=== PATIENT | female | born 1960 | race Caucasian/White ===

== ENCOUNTER → 2020-10-05 08:27 | Outpatient (BNVA) | payer BC, SELFPAY | PROVIDERS: Family Provider Nurse Practitioner Family; PCP Family Medicine; Visit Provider Podiatrist Foot & Ankle Surgery | DX: M79.672 Pain in left foot (principal); M21.6X2 Other acquired deformities of left foot; M25.872 Other specified joint disorders, left ankle and foot; D36.10 Benign neoplasm of peripheral nerves and autonomic nervous system, unspecified | CPT/HCPCS: 73630 ==

== ENCOUNTER → 2021-05-13 08:49 | Outpatient (BNVA) | payer BC, SELFPAY | PROVIDERS: Family Provider Nurse Practitioner Family; PCP Family Medicine; Visit Provider Internal Medicine Rheumatology | DX: R76.8 Other specified abnormal immunological findings in serum (principal); Z79.899 Other long term (current) drug therapy; Z11.59 Encounter for screening for other viral diseases; Z11.1 Encounter for screening for respiratory tuberculosis; E06.3 Autoimmune thyroiditis; M77.10 Lateral epicondylitis, unspecified elbow; Z82.61 Family history of arthritis; Z71.89 Other specified counseling | CPT/HCPCS: 99204; 99214 ==

== ENCOUNTER 2021-05-13 10:44 | Outpatient (CLI) | payer BC, SELFPAY ==
--- NOTE | 2021-05-13 10:52 | XR_ITS ---
WS: [email or web address] Pelvis, AP view, 05/13/2021 Clinical Data: M19.90 - Unspecified osteoarthritis, unspecified site Comparison: None. Findings: No fractures or dislocations are seen. The SI joints and pubic symphysis are intact. The soft tissues are not remarkable. There are small bilateral acetabular lips. XR/XR pelvis 1-2V* [id number] Impression: Minimal osteoarthritis of both hips.
--- NOTE | 2021-05-13 10:52 | XR_ITS ---
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 Findings: No fractures or dislocations are seen. The soft tissues are unremarkable. The joint space s are normal No periarticular demineralization or calcifications are seen. XR/XR hand RT min 3V* [id number] Impression: Negative right hand.
--- NOTE | 2021-05-13 10:52 | XR_ITS ---
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 Findings: There is a fracture of the base of the right fifth metacarpal tarsal of indeterminate age. No new fractures or dislocations are seen. No bone destruction or erosion is noted. The joint spaces and soft tissues are normal. XR/XR foot RT min 3V* [id number] Impression: Fracture of the base of the right fifth metatarsal of indeterminate age.
--- NOTE | 2021-05-13 10:52 | XR_ITS ---
WS: [email or web address] Left hand, 3 views, 05/13/2021 Clinical Data: Z79.899 - Other care home (current) drug therapy Comparison: None. Findings: No fractures or dislocations are seen. The soft tissues are unremarkable. The joint spaces are normal No periarticular demineralization or calcifications are seen. XR/XR hand LT min 3V* [id number] Impression: Negative left hand.
--- NOTE | 2021-05-13 10:52 | XR_ITS ---
WS: [email or web address] Left foot, 3 views, 05/13/2021 Clinical Data: Z79.899 - Other assisted (current) drug therapy Comparison: Left foot, 10/05/2020. Findings: No fractures or dislocations are seen. No bone destruction or erosion is noted. As a small bunion at the head of the left first metatarsal. There is no periarticular demineralization or calcifications. XR/XR foot LT min 3V* [id number] Impression: Small bunion at the head of the left first metatarsal.
[2021-05-13 12:05] LABS: Basophils # 0.1 10^3/uL (0.0-0.1); Basophils % 0.7 %; Eosinophils # 0.2 10^3/uL (0.0-0.8); Eosinophils % 1.7 %; Hematocrit 44.1 % (37.0-47.0); Hemoglobin 15.6 g/dL (11.5-15.3); Lymphocytes # 3.1 10^3/uL (0.8-4.8); Lymphocytes % 35.8 %; Mean Corpuscular HGB Conc 35.4 g/dL (30.0-36.0); Mean Corpuscular Hemoglobin 31.3 pg (28.0-34.0); Mean Corpuscular Volume 88.6 fl (81-99); Mean Platelet Volume 8.7 fL (7.4-10.4); Monocytes # 0.6 10^3/uL (0.2-0.9); Monocytes % 6.7 %; Neutrophils % 54.9 %; Nucleated Red Blood Cells % 0 %; Platelet Count 310 10^3/cmm (130-400); Red Blood Count 4.98 10^6/uL (4.1-5.3); Red Cell Distribution Width 12.2 % (12.1-15.1); White Blood Count 8.8 10^3/uL (4.0-10.0)
[2021-05-13 12:46] LABS: Alanine Aminotransferase 49 U/L (0-33); Albumin Level 4.7 g/dL (3.5-5.2); Alkaline Phosphatase 105 IU/L (35-105); C Reactive Protein 0.6 mg/L (0.0-4.9); Globulin 3.9 g/dL (1.3-4.6); Glomerular Filtration Rate 84.5 mL/min (90-130); Total Bilirubin 0.4 mg/dL (0.15-1.2); Total Protein 8.6 g/dL (6.6-8.7); Uric Acid 4.1 mg/dL (2.4-5.7)
[2021-05-13 13:08] LABS: Erythrocyte Sedimentation Rate 15 mm/hr (0-15)
[2021-05-13 13:14] LABS: Hepatitis B Core AB, Total Non-Reactive (Nonreactive); Hepatitis B Surface Antigen Non-Reactive (Nonreactive); Hepatitis C Virus Antibody Non-Reactive (Nonreactive)
[2021-05-13 13:21] LABS: 25 Hydroxy Vitamin D 39 ng/mL (30-100)
[2021-05-13 13:32] LABS: Aspartate Amino Transferase 48 U/L (0-32)
[2021-05-14 11:38] LABS: COMPLEMENT COMPONENT C3C 168 mg/dL (83-193); COMPLEMENT COMPONENT C4C 25 mg/dL (15-57)
[2021-05-14 14:51] LABS: COMPLEMENT, TOTAL (CH50) >60 U/mL (31-60)
[2021-05-15 10:52] LABS: HLA-B27 NEGATIVE (NEGATIVE)
[2021-05-15 16:09] LABS: DNA AB (DS) CRITHIDIA,IFA NEGATIVE (NEGATIVE)
[2021-05-15 16:12] LABS: Quantiferon Mitogen >10.00 IU/mL; Quantiferon Nil 0.02 IU/mL; Quantiferon TB Gold NEGATIVE (NEGATIVE)
[2021-05-17 13:43] LABS: CENTROMERE B ANTIBODY <1.0 NEG AI (<1.0 NEG); JO-1 ANTIBODY <1.0 NEG AI (<1.0 NEG); RNP ANTIBODY <1.0 NEG AI (<1.0 NEG); SCL-70 ANTIBODY <1.0 NEG AI (<1.0 NEG); SJOGREN'S ANTIBODY (SS-A) <1.0 NEG AI (<1.0 NEG); SM ANTIBODY <1.0 NEG AI (<1.0 NEG); SS-B <1.0 NEG AI (<1.0 NEG)
[2021-05-18 12:17] LABS: ANA PATTERN Nuclear, Speckled; ANA SCREEN, IFA POSITIVE (NEGATIVE)
[2021-05-19 16:22] LABS: THYROID PEROXIDASE ANTIBODIES 38 IU/mL (<9)
== END 2021-05-13 10:45 | disposition home or self-care (01) ==
PROVIDERS: PCP Family Medicine; Visit Provider Internal Medicine Rheumatology
DX: E79.0 Hyperuricemia without signs of inflammatory arthritis and tophaceous disease (principal); M19.90 Unspecified osteoarthritis, unspecified site; M45.0 Ankylosing spondylitis of multiple sites in spine; Z79.899 Other long term (current) drug therapy; Z11.59 Encounter for screening for other viral diseases; M45.9 Ankylosing spondylitis of unspecified sites in spine; R76.8 Other specified abnormal immunological findings in serum; Z11.1 Encounter for screening for respiratory tuberculosis
CPT/HCPCS: 72170; 73130; 73630; 80076; 82306; 82565; 84550; 85025; 85651; 86140; 86160; 86162; 86235; 86255; 86376; 86480; 86704; 86803; 86812; 87340

== ENCOUNTER → 2021-05-28 08:42 | Outpatient (BNVA) | payer BC, SELFPAY | PROVIDERS: PCP Family Medicine; Visit Provider Internal Medicine | DX: E03.8 Other specified hypothyroidism (principal); E06.3 Autoimmune thyroiditis | CPT/HCPCS: 84439; 84443; 84480 ==

== ENCOUNTER → 2021-07-21 10:53 | Outpatient (BNVA) | payer BC, SELFPAY | PROVIDERS: PCP Family Medicine; Visit Provider Internal Medicine Rheumatology | DX: M19.90 Unspecified osteoarthritis, unspecified site (principal); Z79.899 Other long term (current) drug therapy; R76.8 Other specified abnormal immunological findings in serum; M35.9 Systemic involvement of connective tissue, unspecified; E06.3 Autoimmune thyroiditis; Z82.61 Family history of arthritis; Z71.89 Other specified counseling | CPT/HCPCS: 99214 ==

== ENCOUNTER → 2021-08-03 08:52 | Outpatient (BNVA) | payer BC, SELFPAY | PROVIDERS: PCP Family Medicine; Visit Provider Internal Medicine | DX: E06.3 Autoimmune thyroiditis (principal); E03.8 Other specified hypothyroidism | CPT/HCPCS: 99214 ==

== ENCOUNTER → 2021-12-30 15:25 | Outpatient (BNVA) | payer BC, SELFPAY | PROVIDERS: PCP Family Medicine; Visit Provider Internal Medicine Rheumatology | DX: M19.90 Unspecified osteoarthritis, unspecified site (principal); Z79.899 Other long term (current) drug therapy; M35.9 Systemic involvement of connective tissue, unspecified | CPT/HCPCS: 36415; 80076; 82565; 85025; 86140 ==

== ENCOUNTER 2022-03-29 10:12 | Outpatient (CLI) | payer BC, SELFPAY ==
[2022-03-29 11:49] LABS: Alanine Aminotransferase 39 U/L (0-33); Alkaline Phosphatase 92 IU/L (35-105); Aspartate Amino Transferase 31 U/L (0-32); Free T4 Free Thyroxine 1.07 ng/dL (0.82-1.77); Globulin 2.7 g/dL (1.3-4.6); Thyroid Stimulating Hormone 1.23 uIU/mL (0.27-4.20); Total Bilirubin 0.5 mg/dL (0.15-1.2); Total Protein 7.7 g/dL (6.6-8.7)
== END 2022-03-29 10:13 | disposition home or self-care (01) ==
PROVIDERS: PCP Family Medicine; Referring Provider Internal Medicine Rheumatology; Visit Provider Internal Medicine
DX: M19.90 Unspecified osteoarthritis, unspecified site (principal); M35.9 Systemic involvement of connective tissue, unspecified; Z79.899 Other long term (current) drug therapy; E03.8 Other specified hypothyroidism; E06.3 Autoimmune thyroiditis
CPT/HCPCS: 36415; 80076; 82565; 84439; 84443

== ENCOUNTER → 2022-08-16 09:04 | Outpatient (BNVA) | payer BC, SELFPAY | PROVIDERS: PCP Family Medicine; Visit Provider Internal Medicine | DX: E03.8 Other specified hypothyroidism (principal); E06.3 Autoimmune thyroiditis; E78.01 Familial hypercholesterolemia | CPT/HCPCS: 36415; 84439; 84443; 84481 ==

== ENCOUNTER → 2022-12-01 09:05 | Outpatient (BNVA) | payer BC, SELFPAY | PROVIDERS: PCP Family Medicine; Visit Provider Internal Medicine | DX: E06.3 Autoimmune thyroiditis (principal); E03.8 Other specified hypothyroidism | CPT/HCPCS: 36415; 84439; 84443; 84480 ==

== ENCOUNTER 2023-02-03 09:30 | Outpatient (CLI) | payer BC, SELFPAY ==
[2023-02-03 10:46] LABS: Free T4 Free Thyroxine 1.64 ng/dL (0.82-1.77); Thyroid Stimulating Hormone 0.39 uIU/mL (0.27-4.20)
[2023-02-06 14:35] LABS: T3 Total 109 ng/dL (76-181)
== END 2023-02-03 09:31 | disposition home or self-care (01) ==
PROVIDERS: PCP Family Medicine; Visit Provider Internal Medicine
DX: E06.3 Autoimmune thyroiditis (principal)
CPT/HCPCS: 36415; 84439; 84443; 84480